=== PATIENT | male | born 1970 | race Caucasian/White ===

== ENCOUNTER 2023-01-22 09:28 | Day surgery (SDC) | payer BC ==
[2023-01-20 11:16] VITALS: BMI 26.5
[2023-01-22] MEDS ORDERED: Lidocaine 2% PF 5 ML VIAL ONE (10:51)
[2023-01-22] MEDS ORDERED: PROPOFOL 20 ML ONE (10:51)
[2023-01-22] MEDS ORDERED: Lidocaine 1% (PF) 30 ML VIAL ONE (10:51)
[2023-01-22] MEDS ORDERED: Bupivacaine PF 0.5% 30 ML VIAL ONE (10:51)
[2023-01-22 10:54] LABS: #Basophils 0.1 thou/uL (0.0-0.2); #Eosinphils 0.3 thou/uL (0.0-0.7); #Monocytes 0.5 thou/uL (0.11-0.59); #Neutrophils 2.7 thou/uL (1.40-6.50); %Eosinophils 5.1 % (0.0-10.0); %Lymphocytes 32.1 % (21.0-51.0); %Monocytes 9.9 % (0.0-10.0); %Neutrophils 51.9 % (42.0-75.0); Hematocrit 41.5 % (42.0-52.0); Hemoglobin 13.9 g/dL (14.0-18.0); Mean Corpuscular HGB CONC 33.5 g/dL (32.0-36.0); Mean Corpuscular Hemoglobin 30.6 pg (27.0-31.0); Mean Corpuscular Volume 91.4 fl (78.0-98.0); Mean Platelet Volume 9.4 fL (7.4-10.4); Platelet Count 206 10x3/uL (130-400); RBC Distribution Width 12.7 % (11.5-14.5); Red Blood Cell (RBC) Count 4.54 mill/uL (4.70-6.10); White Blood Cell (WBC) Count 5.3 10x3/uL (4.8-10.8)
[2023-01-22] MEDS ORDERED: fentaNYL 50 mcg/mL 1 mL Vial ONE (11:01)
[2023-01-22 11:20] LABS: Anion Gap 12 mmol/L (10-20); BUN (Urea Nitrogen) 13 mg/dL (8.4-25.7); Calc. Creatinine Clearance 97 mL/min (70-130); Calcium 9.3 mg/dL (7.8-10.44); Carbon Dioxide 22 mmol/L (22-29); Chloride 108 mmol/L (98-107); Estimated GFR 69; Glucose 118 mg/dL (70-105); Potassium 4.1 mmol/L (3.5-5.1); Sodium 138 mmol/L (136-145)
[2023-01-22] MEDS ORDERED: CEFAZOLIN 2 GM VIAL ONE (13:21)
[2023-01-22] MEDS ORDERED: Sodium Chloride 0.9% 100 ML ONE (13:21)
[2023-01-22] MEDS ORDERED: Sevoflurane 250 ML INH ANEST BOTTLE ONE (13:25)
[2023-01-22] MEDS ORDERED: Lidocaine 2% 6 ML (Jelly) SYR ONE (13:25)
[2023-01-22] MEDS ORDERED: Bupivacaine HCl 0.5%/Epinephrine 1:200,000/PF 30 ml Vial ONE (13:37)
[2023-01-22] MEDS ORDERED: PROPOFOL 200 MG/20 ML VIAL ONE (13:37)
[2023-01-22] MEDS ORDERED: Dexamethasone 20 MG/5 ML VIAL ONE (13:37)
[2023-01-22] MEDS ORDERED: Lidocaine 1% PF 5 ML VIAL ONE (13:37)
[2023-01-22] MEDS ORDERED: Ondansetron PF 4 MG/2 ML Vial ONE (13:37)
== END 2023-01-22 16:03 | disposition home or self-care (01) ==
LOC: SDC 09:28
PROVIDERS: ATTEND Orthopaedic Surgery
PROC: 0SJD4ZZ Inspection of Left Knee Joint, Percutaneous Endoscopic Approach (ICD-10-PCS; principal; 2023-01-22)
DX: S83.242A Other tear of medial meniscus, current injury, left knee, initial encounter (principal); M94.262 Chondromalacia, left knee; Z91.010 Allergy to peanuts; Z91.018 Allergy to other foods; X58.XXXA Exposure to other specified factors, initial encounter
CPT/HCPCS: 80048; 85025; J1100; J2001; J2405; J2704; J3010; J3490; S0020